=== PATIENT | male | born 1960 | race African-American/Black ===

== ENCOUNTER 2020-02-10 21:24 | Emergency (ER) | payer OTHER ==
[~2020-02-10] VITALS: Ht 182.9 cm; Wt 98.0 kg
[2020-02-10] MEDS ORDERED: FAMOTIDINE 20MG/2ML VIAL IV STA (21:53)
[2020-02-10] MEDS ORDERED: MORPHINE SULFATE 4 MG/ML CPJ (NOT FOR IM USE) IV STA (21:53)
[2020-02-10] MEDS ORDERED: ONDANSETRON HCL 4MG/2ML INJ IV STA (21:53)
[2020-02-10] MEDS ORDERED: SODIUM CHLORIDE 0.9% 1,000 ML IV ONE (21:53)
[2020-02-10 23:05] LABS: BASOPHILS % 0.2 % (0.0-2.0); HEMATOCRIT. 42.8 % (42.0-52.0); HEMOGLOBIN. 14.8 g/dL (14.0-18.0); LYMPHOCYTES % 7.1 % (20.0-50.0); MEAN CORPUSCULAR HEMOGLOBIN 27.4 pg (28.0-32.0); MEAN CORPUSCULAR VOLUME 79.3 fL (80.0-94.0); MEAN PLATELET VOLUME 10.5 fl (7.4-10.4); MONOCYTES % 5.3 % (2.0-8.0); NEUTROPHILS % 87.4 % (40.0-76.0); PLATELET 201 x1000/uL (130-400); RED CELL DISTRIBUTION WIDTH 13.3 % (11.6-14.6)
[2020-02-10 23:11] LABS: CHLORIDE 104 mEq/L (98-107)
[2020-02-10 23:30] VITALS: BP 148/80
== END 2020-02-10 23:52 | disposition home or self-care (01) ==
LOC: ER 21:24
DX: R10.9 Unspecified abdominal pain (principal); Z90.49 Acquired absence of other specified parts of digestive tract
CPT/HCPCS: 36415; 74176; 80053; 83690; 85025; 85610; 96361; 96374; 96375; 99284; J2270; J2405; J3490; J7030